=== PATIENT | female | born 1985 | race Caucasian/White ===

== ENCOUNTER 2018-12-19 14:36 | Emergency (ER) | payer BC, OTHER ==
[2018-12-19 15:16] VITALS: BP 149/85
--- NOTE | 2018-12-19 15:35 | UC ---
UC General HPI - HPI Summary HPI Summary: 10 days of worsening sinus pain, pressure and congestion. post nasal drip causing a sore throat and cough. taking mucinex with no relief. + yellow drainage. 35 weeks . baby is moving. no vaginal d/c or bleeding. - History of Current Complaint Chief Complaint: UCGeneralIllness Stated Complaint: SINUSES,CONGESTION (35 WKS ) Time Seen by Provider: 12/19/18 15:27 Hx Obtained From: Patient Onset/Duration: Gradual Onset Timing: Constant Pain Intensity: 0 Associated Signs & Symptoms: Positive: Cough. Negative: Abdominal Pain - Allergy/Home Medications Allergies/Adverse Reactions: Allergies Allergy/AdvReac Type Severity Reaction Status Date / Time No Known Allergies Allergy Verified 12/19/18 15:13 Home Medications: Home Medications Acetaminophen [Mapap] 500 mg PO DAILY 12/19/18 [History Confirmed 12/19/18] Aspirin 81 mg CHEW TAB* 81 mg PO DAILY 12/19/18 [History Confirmed 12/19/18] Ergocalciferol (Vitamin D2) [Vitamin D2] 1 each PO DAILY 12/19/18 [History Confirmed 12/19/18] 123/Iron/Folic/Omeg3s [One-A-Day 1 Dha Sfgl] 1 each PO DAILY 12/19/18 [History Confirmed 12/19/18] guaiFENesin [Mucinex] 600 mg PO DAILY 12/19/18 [History Confirmed 12/19/18] PMH/Surg Hx/FS Hx/Imm Hx - Additional Past Medical History Additional PMH: 35 weeks Cardiovascular History: Hypertension - Surgical History Surgical History: Yes Surgery Procedure, Year, and Place: NEEDLE REMOVED FROM FOOT. APPENDECTOMY - Family History Known Family History: Positive: Non-Contributory - Social History Occupation: Employed Full-time Alcohol Use: None Substance Use Type: None Smoking Status (MU): Never Smoked Tobacco - Immunization History Vaccination Up to Date: Yes Review of Systems All Other Systems Reviewed And Are Negative: Yes Constitutional: Positive: Negative Skin: Positive: Negative Eyes: Positive: Negative ENT: Positive: Nasal Discharge, Sinus Congestion, Sinus Pain/Tenderness Respiratory: Positive: Cough Cardiovascular: Positive: Negative Gastrointestinal: Positive: Negative Genitourinary: Positive: Negative Motor: Positive: Negative Neurovascular: Positive: Negative Musculoskeletal: Positive: Negative Neurological: Positive: Negative Psychological: Positive: Negative Physical Exam Triage Information Reviewed: Yes Appearance: Well-Appearing Vital Signs: Initial Vital Signs Temp 97.6 F 12/19/18 15:11 Pulse 93 12/19/18 15:11 Resp 18 12/19/18 15:11 BP 149/85 12/19/18 15:11 Pulse Ox 99 12/19/18 15:11 Vital Signs Reviewed: Yes Eyes: Positive: Conjunctiva Clear ENT: Positive: Pharynx normal, Nasal congestion - with boggy memebranes, TMs normal, Sinus tenderness - maxillary Neck: Positive: Supple, Nontender, No Lymphadenopathy Respiratory: Positive: Lungs clear, Normal breath sounds Cardiovascular: Positive: RRR, No Murmur Abdomen Description: Positive: Nontender, No Organomegaly, Soft Bowel Sounds: Positive: Present Musculoskeletal: Positive: ROM Intact Neurological: Positive: Alert Psychological: Positive: Age Appropriate Behavior Skin Exam: Normal Course/Dx - Differential Dx - Multi-Symptom Differential Diagnoses: Other - uri, sinsuitis, bronchitis - Diagnoses Provider Diagnosis: Sinusitis Discharge - Sign-Out/Discharge Documenting (check all that apply): Patient Departure All imaging exams completed and their final reports reviewed: No Studies - Discharge Plan Condition: Stable Disposition: HOME Prescriptions: Amoxicillin/Clavulanate TAB* [Augmentin TAB 875*] 875 mg PO BID 10 Days #20 tab Patient Education Materials: Sinusitis (ED) Referrals: Jose Owens MD [Primary Care Provider] - 7 Days - Billing Disposition and Condition Condition: STABLE Disposition: Home
== END 2018-12-19 16:19 | disposition home or self-care (01) ==
LOC: UCCORT 14:36
DX: O99.513 Diseases of the respiratory system complicating pregnancy, third trimester (principal); O16.3 Unspecified maternal hypertension, third trimester; J32.9 Chronic sinusitis, unspecified; Z3A.35 35 weeks gestation of pregnancy; Z79.82 Long term (current) use of aspirin
CPT/HCPCS: 99202; G0463